=== PATIENT | male | born 1980 | race Asian ===

== ENCOUNTER → 2024-08-05 14:06 | Outpatient (REF) | payer BC, SELFPAY | LOC: HWRAD 14:06 | PROVIDERS: ATTENDING PHYSICIAN Chiropractor | DX: M99.03 Segmental and somatic dysfunction of lumbar region (principal); M62.40 Contracture of muscle, unspecified site; M53.2X7 Spinal instabilities, lumbosacral region | CPT/HCPCS: 72110 ==

== ENCOUNTER 2025-01-23 09:17 | Emergency (ER) | payer BC, SELFPAY ==
[2025-01-23 09:19] VITALS: BP 132/88
--- NOTE | 2025-01-23 10:05 | ED.GENMED ---
History of Present Illness
General
Chief Complaint: Musculo-Skeletal Complaint
Time Seen by Provider: 01/23/25 09:49
History of Present Illness
History of Present Illness:
44-year-old male with history of [id number] diabetes and hyperlipidemia presents to the emergency department for evaluation of bilateral neck/shoulder pain radiating to both hands that began last night and prevented him from sleeping.
Denies any paresthesias or extremity weakness. Denies any falls or injuries to the head or neck. No fevers or chills. Denies chest pain or shortness of breath
Review of Systems
Review of Systems
Allergies reviewed?: Yes
All Other Systems: ROS reviewed and negative except as documented in HPI and ROS
Phy Exam
Physical Exam
Physical Exam:
GEN: Well appearing, NAD, WDWN
HEENT: Oral mucosa moist, no scleral icterus
Cardiac: Regular rate
Lung: No respiratory distress, no tachypnea
MSK: No gross deformity or injuries, no midline cervical spine tenderness, mild tenderness to bilateral trapezius muscle bellies. Normal range of motion bilateral shoulders, strength intact in all gill of range of motion
Skin: Good color, no pallor or jaundice, no rashes
Neuro: AO x3, moves all extremities freely
Psych: Calm, cooperative
Course
Orders/Labs/Results
Orders:
Orders
01/23/25 10:01
Electrocardiogram (*1) Urgent
Reason for Study: QTc Monitoring
EKG- Treatment ONCE
Diazepam [Valium] 5 mg PO NOW STA
Ketorolac [Toradol] 30 mg IM NOW STA
Vital Signs
Initial and Last Documented VS:
Initial Vital Signs
Temp Pulse Resp BP Pulse Ox
98.7 F 88 18 132/88 96
01/23/25 09:19 01/23/25 09:19 01/23/25 09:19 01/23/25 09:19 01/23/25 09:19
Last Documented Vital Signs
Temp Pulse Resp BP Pulse Ox
98.7 F 88 18 132/88 96
01/23/25 09:19 01/23/25 09:19 01/23/25 09:19 01/23/25 09:19 01/23/25 10:07
MDM/Problems Addressed
MDM/Problems Addressed:
Most likely musculoskeletal etiology to symptoms. His pain did improve with anti-inflammatory and muscle relaxant given in the ED. He has no focal neurologic deficits concerning for vascular pathology and no chest pain concerning for ACS,
particularly is reassuring that he has a normal nonischemic EKG. Discussed supportive care and recommendation for outpatient PT/chiropractic treatment
Comment
Comment:
EKG independently interpreted by me shows normal sinus rhythm with no ischemic changes or QT abnormalities
*Pulse Oximetry
SaO2: 96
Oxygen Mode of Delivery: Room air
Patient hypoxic: no
*Critical Care Note
Total Time (30-74mins, 75-104mins- exclusive of procedures): Not Applicable
ED Attending Note
-
Portions of this chart may have been created with voice recognition software.� Occasional wrong word or��sound alike� substitutions may have occurred due to the inherent limitations of voice recognition software.
Discharge Plan
Departure
Patient Disposition: Home (Routine Discharge)
Date of Disposition: 01/23/25
Time of Disposition: 11:21
Patient with high blood pressure during this ER visit?: No
Discharge Problem:
Cervical radiculopathy
Instructions: Radiculopathy of the neck and back (including sciatica) (DC)
Prescriptions:
New
celecoxib [Celebrex] 200 mg capsule
200 mg PO BID Qty: 20 0RF
methocarbamol 750 mg tablet
750 - 1,500 mg PO HS Qty: 12 0RF
Referrals:
Marcell Chapa MD [Family Provider, Family Practice]
Interventions
Interventions:
*Risk Screen - Suicide Last Done: 01/23/25 09:19
*General Assessment Last Done: 01/23/25 09:19
*Neglect/Abuse Screening Last Done: 01/23/25 09:19
*ED- Fall Risk Assessment Last Done: 01/23/25 10:19
*ED COVID-19 Vaccine History Last Done: 01/23/25 10:19
*ED Influenza Vaccine History Last Done: 01/23/25 10:19
*Nursing Disposition Last Done: 01/23/25 11:49
ED-Musculoskeletal Assessment Last Done: 01/23/25 10:19
Discharge Date and Time
Discharge Date/Time: 01/23/25 11:20
Print Language: ROMANIAN
[2025-01-23] MEDS: TORADOL 30 MG IM (10:20)
[2025-01-23] MEDS: VALIUM 5 MG PO (10:20)
--- NOTE | 2025-01-23 11:49 | EDRN ---
Discharge instructions given to patient by Jose Wilson PA-C. Unable to reassess pain and vital signs.
== END 2025-01-23 11:20 | disposition home or self-care (01) ==
LOC: EMR 09:17
PROVIDERS: EMERGENCY PHYSICIAN Student in an Organized Health Care Education/Training Program; FAMILY PHYSICIAN Student in an Organized Health Care Education/Training Program
DX: M54.12 Radiculopathy, cervical region (principal); E11.9 Type 2 diabetes mellitus without complications; E78.5 Hyperlipidemia, unspecified
CPT/HCPCS: 99284; 96372; 93005